=== PATIENT | male | born 1955 | race Caucasian/White ===

== ENCOUNTER 2020-09-17 13:28 | Outpatient (CLI) | payer MEDICARE, SELFPAY ==
--- NOTE | ~2020-09-17 | US_ITS ---
US thyroid INDICATION: Enlarged thyroid gland TECHNIQUE: Real-time sonographic images of the thyroid gland were obtained. COMPARISON: Comparison to multiple prior studies sequentially, with oldest reviewed study dated 12/18. FINDINGS: The right thyroid lobe measures 4.7 x 1.6 x 1.7 cm. The left thyroid lobe measures 4.1 x 1 .6 x 1.5 cm. There is a heterogeneous appearance to both lobes with multiple bilateral thyroid masses . Decreased size of predominantly hyperechoic solid right thyroid mass inferiorly measuring 12 x 11 x 11 mm, wider than tall, ill-defined margins without definite calcifications, TR 3. No significant ch meghan to left thyroid mass measuring 1.3 x 1 x 0.6 cm which is almost completely solid, slightly hyper echoic, wider than tall, ill-defined margins without definite calcifications. At the isthmus there is a mass measuring 1.6 x 1.4 x 0.8 cm, paracentral to the right. This mass is solid, hypoechoic, wider than tall, ill-defined margins with macrocalcifications, TR 4. IMPRESSION: 1. No significant change to bilateral thyroid masses, most compatible with benign multinodular goite r. Largest mass in the right side of the isthmus was previously biopsy proven benign on biopsy perfor med 02/27/2012 which showed findings consistent with benign follicular nodule. Reviewed, dictated and finalized at location B. IMPRESSION: 1. No significant change to bilateral thyroid masses, most compatible with lucien ign multinodular goiter. Largest mass in the right side of the isthmus was prev iously biopsy proven benign on biopsy performed 02/27/2012 which showed finding s consistent with benign follicular nodule.
== END 2020-09-17 13:29 | disposition home or self-care (01) ==
PROVIDERS: PCP Physician Assistant; Visit Provider Physician Assistant
DX: E04.9 Nontoxic goiter, unspecified (principal)
CPT/HCPCS: 76536

== ENCOUNTER 2023-12-21 16:41 | Emergency (ER) | payer OTHER, SELFPAY ==
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
[2023-12-21 16:51] VITALS: BP 139/93; PULSE 80; RESP 16; TEMP 36.6; O2SAT 98
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
== END 2023-12-21 18:25 | disposition home or self-care (01) ==
PROVIDERS: Emergency Provider Registered Nurse; PCP Physician Assistant
DX: S70.11XA Contusion of right thigh, initial encounter (principal); V18.4XXA Pedal cycle driver injured in noncollision transport accident in traffic accident, initial encounter; M25.511 Pain in right shoulder; N40.0 Benign prostatic hyperplasia without lower urinary tract symptoms; K21.9 Gastro-esophageal reflux disease without esophagitis; I10 Essential (primary) hypertension; G60.9 Hereditary and idiopathic neuropathy, unspecified; Z85.828 Personal history of other malignant neoplasm of skin
CPT/HCPCS: 73030; 73552; 99214; G0463